=== PATIENT | female | born 1970 | race Caucasian/White ===

== ENCOUNTER 2018-02-26 23:35 | Inpatient (IN) | payer OTHER ==
[~2018-02-26] VITALS: Ht 165.1 cm; Wt 111.3 kg
[~2018-02-26 23:35] MED LIST: ATOR40TA28 PO; BUME1TAB17 PO; CINA30 PO; GABA-529 PO; INSLAN SQ; INSU100C3 SQ; LEVO25TA9 PO; LEVO500 PO; METO50 PO; NYST50002 PO; SEVEC800 PO; SUCR500T PO; VANC1PLA9 IV
[2018-02-27] MEDS ORDERED: BUME1TAB17 PO (00:02)
[2018-02-27] MEDS ORDERED: SEVEC800 PO (00:02)
[2018-02-27] MEDS ORDERED: INSNOV SQ ×2 (00:02)
[2018-02-27 00:34] LABS: BASOPHILS % (AUTO) 0.7 % (0.0-2.0); EOSINOPHILS % (AUTO) 6.4 % (1.0-6.0); HEMATOCRIT 33.9 % (36-46); HEMOGLOBIN 11.4 g/dL (12.0-16.0); LYMPHOCYTES # (AUTO) 1.2 K/uL (1.0-4.8); LYMPHOCYTES % (AUTO) 14.1 % (22.0-44.0); MEAN CORPUSCULAR HEMOGLOBIN 32.7 pg (26.0-34.0); MEAN CORPUSCULAR HGB CONC 33.7 G/dL (31.0-37.0); MEAN CORPUSCULAR VOLUME 97 fL (80-100); MONOCYTES # (AUTO) 0.7 K/uL (0.1-1.0); MONOCYTES % (AUTO) 8.2 % (2.0-9.0); NEUTROPHILS # (AUTO) 5.9 K/uL (1.8-7.7); NEUTROPHILS % (AUTO) 70.6 % (40.0-70.0); PLATELET COUNT (AUTO) 382 K/uL (150-450); RED BLOOD CELL COUNT(AUTO) 3.49 MIL/uL (4.00-5.20); RED CELL DISTRIBUTION WIDTH 13.5 % (11.5-14.5)
[2018-02-27 00:55] LABS: ALBUMIN 2.7 g/dL (3.4-5.0); BILIRUBIN,TOTAL 0.3 mg/dL (0.1-1.0); CALCIUM, TOTAL 8.6 mg/dL (8.8-10.5); CREATININE 7.19 mg/dL (0.60-1.30); POTASSIUM 4.4 mmol/L (3.5-5.1); TOTAL PROTEIN, SERUM 6.2 g/dL (6.4-8.2)
[2018-02-27] MEDS ORDERED: DEXTROSE 50%-WATER 25 GM/50 ML SYRINGE IVP ONE ×2 (00:56→01:00)
[2018-02-27] MEDS ORDERED: 0.9% SODIUM CHLORIDE 10 ML SYRINGE IVP PRN (01:45)
[2018-02-27] MEDS ORDERED: DEXTROSE 10%-WATER 1,000 ML IV ONE (01:45)
[2018-02-27] MEDS ORDERED: ONDANSETRON HCL 4 MG/2 ML VIAL IVP PRN ×2 (01:45→09:45)
[2018-02-27] MEDS ORDERED: ACETAMINOPHEN 325 MG TABLET PO PRN (01:45)
[2018-02-27 02:27] LABS: GLUCOSE,POINT OF CARE 97 MG/DL (70-110)
[2018-02-27 02:27] LABS: GLUCOSE,POINT OF CARE 145 MG/DL (70-110)
[2018-02-27 02:27] LABS: GLUCOSE,POINT OF CARE 108 MG/DL (70-110)
[2018-02-27 03:03] VITALS: BP 154/61
[2018-02-27 05:00] VITALS: BP 149/68
[2018-02-27 07:13] VITALS: BP 160/68
[2018-02-27] MEDS ORDERED: INSLAN SQ (07:48)
[2018-02-27] MEDS ORDERED: DEXTROSE 50%-WATER 25 GM/50 ML SYRINGE IVP PRN (08:00)
[2018-02-27] MEDS: BUMETANIDE 1 MG TABLET PO SCH ×2 (09:00→21:02)
[2018-02-27] MEDS: METOPROLOL TARTRATE 50 MG TABLET PO SCH ×2 (09:18→21:00)
[2018-02-27] MEDS: SEVELAMER CARBONATE 800 MG TABLET PO SCH ×3 (09:18→17:58)
[2018-02-27] MEDS: INSULIN LISPRO 100 UNITS/ML SQ PRN ×3 (09:23→21:10)
[2018-02-27] MEDS ORDERED: ZOLPIDEM TARTRATE 5 MG TABLET PO PRN (09:45)
[2018-02-27] MEDS: PANTOPRAZOLE SODIUM 40 MG/VIAL IVP SCH ×2 (09:45→10:18)
[2018-02-27] MEDS: DOCUSATE SODIUM 100 MG CAPSULE PO SCH ×2 (10:18→21:00)
[2018-02-27 11:41] VITALS: BP 142/71
[2018-02-27] MEDS ORDERED: HYDROmorphone 2 MG/ML SYRINGE IVP PRN (13:30)
[2018-02-27 13:38] LABS: GLUCOMETER DEV NAME(LOC) 5N 2S; GLUCOSE,POINT OF CARE 162 MG/DL (70-110)
[2018-02-27 15:30] VITALS: BP 156/76
[2018-02-27] MEDS: VITAMIN B COMP/VIT C/FOLIC ACID CAPSULE PO SCH (16:30)
[2018-02-27 19:53] VITALS: BP 157/75
[2018-02-27 20:02] LABS: GLUCOMETER DEV NAME(LOC) 5N 1P; GLUCOSE,POINT OF CARE 195 MG/DL (70-110)
[2018-02-27 20:02] LABS: GLUCOMETER DEV NAME(LOC) 5N 1P; GLUCOSE,POINT OF CARE 335 MG/DL (70-110)
[2018-02-27 20:02] LABS: GLUCOMETER DEV NAME(LOC) 5N 1P; GLUCOSE,POINT OF CARE 283 MG/DL (70-110)
[2018-02-27 20:03] LABS: GLUCOMETER DEV NAME(LOC) 5N 1P; GLUCOSE,POINT OF CARE 119 MG/DL (70-110)
[2018-02-27] MEDS: ATORVASTATIN CALCIUM 40 MG TABLET PO SCH (20:59)
[2018-02-27] MEDS: HYDROmorphone 2 MG/ML SYRINGE IVP PRN (21:04)
[2018-02-27] MEDS: GABAPENTIN 100 MG CAPSULE PO SCH (21:09)
[2018-02-27 22:27] LABS: GLUCOMETER DEV NAME(LOC) 5S 1M; GLUCOSE,POINT OF CARE 298 MG/DL (70-110)
[2018-02-28] VITALS (8 sets, daily range): BP systolic 129–181; BP diastolic 65–90
[2018-02-28] MEDS: HYDROmorphone 2 MG/ML SYRINGE IVP PRN ×4 (02:41→22:48)
[2018-02-28] MEDS: LEVOTHYROXINE SODIUM 50 MCG TABLET PO SCH (06:01)
[2018-02-28] MEDS: INSULIN LISPRO 100 UNITS/ML SQ PRN ×4 (06:03→20:45)
[2018-02-28 06:32] LABS: BASOPHILS % (AUTO) 0.6 % (0.0-2.0); HEMATOCRIT 32.1 % (36-46); HEMOGLOBIN 11.4 g/dL (12.0-16.0); LYMPHOCYTES # (AUTO) 1.8 K/uL (1.0-4.8); LYMPHOCYTES % (AUTO) 24.6 % (22.0-44.0); MEAN CORPUSCULAR HEMOGLOBIN 34.2 pg (26.0-34.0); MEAN CORPUSCULAR HGB CONC 35.3 G/dL (31.0-37.0); MEAN CORPUSCULAR VOLUME 97 fL (80-100); MONOCYTES # (AUTO) 0.7 K/uL (0.1-1.0); MONOCYTES % (AUTO) 9.9 % (2.0-9.0); NEUTROPHILS # (AUTO) 3.8 K/uL (1.8-7.7); NEUTROPHILS % (AUTO) 50.9 % (40.0-70.0); PLATELET COUNT (AUTO) 357 K/uL (150-450); RED BLOOD CELL COUNT(AUTO) 3.32 MIL/uL (4.00-5.20); RED CELL DISTRIBUTION WIDTH 13.3 % (11.5-14.5)
[2018-02-28 06:54] LABS: CALCIUM, TOTAL 8.4 mg/dL (8.8-10.5); CREATININE 6.71 mg/dL (0.60-1.30); POTASSIUM 4.9 mmol/L (3.5-5.1)
[2018-02-28 07:49] LABS: GLUCOMETER DEV NAME(LOC) 5N 2S; GLUCOSE,POINT OF CARE 269 MG/DL (70-110)
[2018-02-28] MEDS: VITAMIN B COMP/VIT C/FOLIC ACID CAPSULE PO SCH (08:26)
[2018-02-28] MEDS: SEVELAMER CARBONATE 800 MG TABLET PO SCH ×3 (08:26→17:59)
[2018-02-28] MEDS: METOPROLOL TARTRATE 50 MG TABLET PO SCH ×2 (08:26→20:40)
[2018-02-28] MEDS: PANTOPRAZOLE SODIUM 40 MG/VIAL IVP SCH (08:27)
[2018-02-28] MEDS: DOCUSATE SODIUM 100 MG CAPSULE PO SCH ×2 (08:27→20:40)
[2018-02-28] MEDS: BUMETANIDE 1 MG TABLET PO SCH ×2 (08:27→20:40)
[2018-02-28 15:17] LABS: GLUCOMETER DEV NAME(LOC) 5N 2S; GLUCOSE,POINT OF CARE 240 MG/DL (70-110)
[2018-02-28 19:57] LABS: GLUCOMETER DEV NAME(LOC) 5S 1M; GLUCOSE,POINT OF CARE 249 MG/DL (70-110)
[2018-02-28] MEDS: GABAPENTIN 100 MG CAPSULE PO SCH (20:40)
[2018-02-28] MEDS: ATORVASTATIN CALCIUM 40 MG TABLET PO SCH (20:40)
[2018-02-28] MEDS: INSULIN GLARGINE,HUM.REC.ANLOG 100 UNITS/ML SQ SCH (20:44)
[2018-03-01 04:29] VITALS: BP 158/83
[2018-03-01] MEDS: HYDROmorphone 2 MG/ML SYRINGE IVP PRN ×2 (04:55→10:53)
[2018-03-01] MEDS: LEVOTHYROXINE SODIUM 50 MCG TABLET PO SCH (06:01)
[2018-03-01] MEDS: INSULIN LISPRO 100 UNITS/ML SQ PRN ×3 (06:03→17:20)
[2018-03-01] MEDS ORDERED: INSULIN LISPRO 100 UNITS/ML SQ ONE (06:45)
[2018-03-01 06:48] LABS: GLUCOMETER DEV NAME(LOC) 5S 1M; GLUCOSE,POINT OF CARE 436 MG/DL (70-110)
[2018-03-01 06:48] LABS: GLUCOMETER DEV NAME(LOC) 5S 1M; GLUCOSE,POINT OF CARE 262 MG/DL (70-110)
[2018-03-01 07:23] VITALS: BP 144/70
[2018-03-01] MEDS: SEVELAMER CARBONATE 800 MG TABLET PO SCH ×3 (08:16→17:41)
[2018-03-01] MEDS: METOPROLOL TARTRATE 50 MG TABLET PO SCH (08:17)
[2018-03-01] MEDS: DOCUSATE SODIUM 100 MG CAPSULE PO SCH (08:17)
[2018-03-01] MEDS: VITAMIN B COMP/VIT C/FOLIC ACID CAPSULE PO SCH (08:18)
[2018-03-01] MEDS: BUMETANIDE 1 MG TABLET PO SCH (08:19)
[2018-03-01] MEDS: PANTOPRAZOLE SODIUM 40 MG/VIAL IVP SCH (08:19)
[2018-03-01] MEDS: INSULIN GLARGINE,HUM.REC.ANLOG 100 UNITS/ML SQ SCH (08:27)
[2018-03-01 11:17] VITALS: BP 152/72
[2018-03-01] MEDS ORDERED: LEVO50 PO (12:11)
[2018-03-01] MEDS ORDERED: FOLI1CAP2 PO (12:15)
[2018-03-01] MEDS ORDERED: INSLAN SQ (12:18)
[2018-03-01 15:10] VITALS: BP 159/77
[2018-03-01 20:27] LABS: GLUCOMETER DEV NAME(LOC) 5S 1M; GLUCOSE,POINT OF CARE 365 MG/DL (70-110)
[2018-03-01 20:27] LABS: GLUCOMETER DEV NAME(LOC) 5S 1M; GLUCOSE,POINT OF CARE 371 MG/DL (70-110)
[2018-03-01 20:27] LABS: GLUCOMETER DEV NAME(LOC) 5S 1M; GLUCOSE,POINT OF CARE 232 MG/DL (70-110)
[2018-03-01] MEDS ORDERED: INSULIN GLARGINE,HUM.REC.ANLOG 100 UNITS/ML SQ SCH (21:00)
[2018-03-02] MEDS ORDERED: INSULIN GLARGINE,HUM.REC.ANLOG 100 UNITS/ML SQ SCH (08:00)
== END 2018-03-01 18:15 | disposition home or self-care (01) | DRG 638 ==
LOC: EMS 23:36 → 5S 02-27 02:20
PROVIDERS: ADMIT Internal Medicine; ATTEND Internal Medicine
PROC: 5A1D70Z Performance of Urinary Filtration, Intermittent, Less than 6 Hours Per Day (ICD-10-PCS; principal; 2018-02-27)
PROC: 5A1D70Z Performance of Urinary Filtration, Intermittent, Less than 6 Hours Per Day (ICD-10-PCS; 2018-02-28)
DX: E11.649 Type 2 diabetes mellitus with hypoglycemia without coma (principal); I12.0 Hypertensive chronic kidney disease with stage 5 chronic kidney disease or end stage renal disease; E11.22 Type 2 diabetes mellitus with diabetic chronic kidney disease; E11.51 Type 2 diabetes mellitus with diabetic peripheral angiopathy without gangrene; Z68.41 Body mass index [BMI] 40.0-44.9, adult; H26.9 Unspecified cataract; E03.9 Hypothyroidism, unspecified; E78.5 Hyperlipidemia, unspecified; N18.6 End stage renal disease; Z99.2 Dependence on renal dialysis; Z79.4 Long term (current) use of insulin; Z79.899 Other long term (current) drug therapy; Z82.49 Family history of ischemic heart disease and other diseases of the circulatory system; Z83.3 Family history of diabetes mellitus; Z90.49 Acquired absence of other specified parts of digestive tract; Z85.9 Personal history of malignant neoplasm, unspecified; E66.9 Obesity, unspecified
CPT/HCPCS: 82962; 83735; 87081; 96374; 97162; 99285; C9113; J1170; J1815

== ENCOUNTER 2023-03-29 14:26 | Inpatient (IN) | payer MEDICARE, OTHER ==
[~2023-03-29] VITALS: Ht 165.1 cm; Wt 59.6 kg
[~2023-03-29 14:26] MED LIST changes: -BUME1TAB17 PO; +BUME1TAB34 PO; -CINA30 PO; +FOLI1CAP2 PO; +GABA-1216 PO; -GABA-529 PO; -INSU100C3 SQ; -LEVO25TA9 PO; +LEVO50 PO; -LEVO500 PO; -NYST50002 PO; +SEVE800T17 PO; -SEVEC800 PO; -SUCR500T PO; -VANC1PLA9 IV
[2023-03-29] MEDS ORDERED: LevETIRAcetam 1,000 MG in DEXTROSE 5%-WATER 100 ML IV ONE (15:00)
[2023-03-29 15:24] LABS: BASOPHILS % (AUTO) 0.4 % (0.0-2.0); HEMOGLOBIN 11.3 g/dL (12.0-16.0); LYMPHOCYTES # (AUTO) 1.2 K/uL (1.0-4.8); LYMPHOCYTES % (AUTO) 23.1 % (22.0-44.0); MEAN CORPUSCULAR HEMOGLOBIN 31.6 pg (26.0-34.0); MEAN CORPUSCULAR HGB CONC 33.1 G/dL (31.0-37.0); MEAN CORPUSCULAR VOLUME 95 fL (80-100); MONOCYTES # (AUTO) 0.8 K/uL (0.1-1.0); NEUTROPHILS # (AUTO) 2.9 K/uL (1.8-7.7); NEUTROPHILS % (AUTO) 56.5 % (40.0-70.0); PLATELET COUNT (AUTO) 214 K/uL (150-450); RED BLOOD CELL COUNT(AUTO) 3.57 MIL/uL (4.00-5.20); RED CELL DISTRIBUTION WIDTH 15.1 % (11.5-14.5)
[2023-03-29 15:37] LABS: ANION GAP 8 mmol/L (8-16); CALCIUM, TOTAL 8.7 mg/dL (8.8-10.5); CARBON DIOXIDE 27 mmol/L (22-29); CHLORIDE 98 mmol/L (98-107); CREATININE 4.25 mg/dL (0.60-1.30); GLOMERULAR FILTR. RATE CALC 11 mL/min (>60); GLUCOSE,RANDOM 173 mg/dL (70-110); POTASSIUM 3.9 mmol/L (3.5-5.1); SODIUM SERUM 133 mmol/L (136-145)
[2023-03-29 15:39] LABS: B-TYPE NATRIURETIC PEPTIDE 248 pg/mL (0-100)
[2023-03-29 15:40] LABS: INR 1.1 (0.9-1.1); PROTHROMBIN TIME 11.9 SEC (9.4-11.6)
[2023-03-29 15:44] LABS: AMMONIA 16 umol/L (11-32)
[2023-03-29 16:02] LABS: ALANINE AMINOTRANSFERASE 26 U/L (12-78); ALBUMIN 2.9 g/dL (3.4-5.0); ALKALINE PHOSPHATASE 232 U/L (46-116); ASPARTATE AMINOTRANSFERASE 36 U/L (15-37); BILIRUBIN,TOTAL 0.5 mg/dL (0.1-1.0); CREATINE KINASE, TOTAL ONLY 101 U/L (26-192); PHOSPHORUS 3.7 mg/dL (2.5-4.9); TOTAL PROTEIN, SERUM 6.6 g/dL (6.4-8.2)
[2023-03-29] MEDS ORDERED: DEXTROSE 50%-WATER 25 GM/50 ML SYRINGE IVP PRN (19:15)
[2023-03-29] MEDS ORDERED: ONDANSETRON HCL 4 MG/2 ML VIAL IVP PRN (19:15)
[2023-03-29] MEDS: ALBUTEROL SULFATE 2.5 MG/0.5 ML NEB SOLUTION NEB SCH ×2 (20:27→23:00)
[2023-03-29] MEDS: IPRATROPIUM BROMIDE 0.5 MG/2.5 ML NEB SOLUTION NEB SCH ×2 (20:27→23:00)
[2023-03-29] MEDS ORDERED: INSULIN GLARGINE,HUM.REC.ANLOG 100 UNITS/ML SQ SCH (21:00)
[2023-03-29] MEDS ORDERED: ATORVASTATIN CALCIUM 40 MG TABLET PO SCH (21:00)
[2023-03-29] MEDS ORDERED: METOPROLOL TARTRATE 50 MG TABLET PO SCH (21:00)
[2023-03-29 21:36] VITALS: BP 147/72
[2023-03-29] MEDS: INSULIN LISPRO 100 UNITS/ML SQ PRN (22:00)
[2023-03-29] MEDS: HEPARIN SODIUM,PORCINE 5,000 UNITS/ML VIAL SQ SCH (22:01)
[2023-03-29] MEDS: GABAPENTIN 100 MG CAPSULE PO SCH (22:02)
[2023-03-29] MEDS: ACETAMINOPHEN 325 MG TABLET PO PRN (22:02)
[2023-03-29] MEDS: BUMETANIDE 1 MG TABLET PO SCH (22:02)
[2023-03-29] MEDS ORDERED: ATORVASTATIN CALCIUM 40 MG TABLET PO ONE (23:15)
[2023-03-29] MEDS ORDERED: ASPIRIN 81 MG CHEWABLE TABLET PO ONE (23:15)
[2023-03-30 00:01] LABS: GLUCOMETER DEV NAME(LOC) 5S.2C; GLUCOSE,POINT OF CARE 186 MG/DL (70-110)
[2023-03-30 00:36] VITALS: BP 129/74
[2023-03-30] MEDS: IPRATROPIUM BROMIDE 0.5 MG/2.5 ML NEB SOLUTION NEB SCH ×6 (03:00→23:00)
[2023-03-30] MEDS: ALBUTEROL SULFATE 2.5 MG/0.5 ML NEB SOLUTION NEB SCH ×6 (03:00→23:00)
[2023-03-30] MEDS: ACETAMINOPHEN 325 MG TABLET PO PRN (03:08)
[2023-03-30 03:11] LABS: GLUCOMETER DEV NAME(LOC) 5S.1B; GLUCOSE,POINT OF CARE 167 MG/DL (70-110)
[2023-03-30 03:11] LABS: GLUCOMETER DEV NAME(LOC) 5S.1B; GLUCOSE,POINT OF CARE 33 MG/DL (70-110)
[2023-03-30 05:04] VITALS: BP 124/74
[2023-03-30] MEDS: LEVOTHYROXINE SODIUM 50 MCG TABLET PO SCH (06:12)
[2023-03-30] MEDS ORDERED: LEVOTHYROXINE SODIUM 50 MCG TABLET PO SCH (06:30)
[2023-03-30 07:20] VITALS: BP 96/50
[2023-03-30 08:31] LABS: GLUCOMETER DEV NAME(LOC) 5S.2C; GLUCOSE,POINT OF CARE 114 MG/DL (70-110)
[2023-03-30 08:31] LABS: GLUCOMETER DEV NAME(LOC) 5S.2C; GLUCOSE,POINT OF CARE 77 MG/DL (70-110)
[2023-03-30] MEDS: ASPIRIN 81 MG CHEWABLE TABLET PO SCH (08:55)
[2023-03-30] MEDS: SEVELAMER CARBONATE 800 MG TABLET PO SCH ×3 (08:55→18:24)
[2023-03-30] MEDS: ATORVASTATIN CALCIUM 40 MG TABLET PO SCH (08:56)
[2023-03-30] MEDS: HEPARIN SODIUM,PORCINE 5,000 UNITS/ML VIAL SQ SCH ×2 (08:56→20:05)
[2023-03-30] MEDS: BUMETANIDE 1 MG TABLET PO SCH (08:56)
[2023-03-30] MEDS: FOLIC ACID/VIT B COMPLEX AND C TABLET PO SCH (08:56)
[2023-03-30] MEDS: RANOLAZINE 500 MG ER TABLET PO SCH ×2 (08:57→20:05)
[2023-03-30] MEDS ORDERED: METOPROLOL SUCCINATE 25 MG ER TABLET PO SCH (09:00)
[2023-03-30] MEDS ORDERED: INSULIN GLARGINE,HUM.REC.ANLOG 100 UNITS/ML SQ SCH (09:00)
[2023-03-30 11:36] VITALS: BP 114/58
[2023-03-30 11:57] LABS: GLUCOMETER DEV NAME(LOC) 5S.1B; GLUCOSE,POINT OF CARE 176 MG/DL (70-110)
[2023-03-30] MEDS: INSULIN LISPRO 100 UNITS/ML SQ PRN ×3 (12:58→20:28)
[2023-03-30 13:01] LABS: GLUCOMETER DEV NAME(LOC) 5S.2C; GLUCOSE,POINT OF CARE 340 MG/DL (70-110)
[2023-03-30 15:26] VITALS: BP 102/61
[2023-03-30] MEDS ORDERED: KETOROLAC TROMETHAMINE 15 MG/ML VIAL IVP ONE (17:00)
[2023-03-30] MEDS ORDERED: LevETIRAcetam 250 MG in DEXTROSE 5%-WATER 100 ML IV SCH (18:00)
[2023-03-30 18:17] LABS: GLUCOMETER DEV NAME(LOC) 5S.1B; GLUCOSE,POINT OF CARE 181 MG/DL (70-110)
[2023-03-30] MEDS: LevETIRAcetam 500 MG TABLET PO SCH ×2 (18:24→20:05)
[2023-03-30 20:00] VITALS: BP 97/45
[2023-03-30] MEDS: GABAPENTIN 100 MG CAPSULE PO SCH (20:05)
[2023-03-30 22:31] LABS: GLUCOMETER DEV NAME(LOC) 5S.2C; GLUCOSE,POINT OF CARE 202 MG/DL (70-110)
[2023-03-30 22:35] LABS: APPEARANCE,URINE CLEAR (CLEAR); BILIRUBIN,URINE NEGATIVE (NEGATIVE); GLUCOSE, URINE (UA) 300-500 mg/dL (NEGATIVE); KETONES,URINE NEGATIVE (NEGATIVE); LEUKOCYTE ESTERASE ,URINE SMALL (NEGATIVE); NITRATE,URINE NEGATIVE (NEGATIVE); OCCULT BLOOD,URINE NEGATIVE (NEGATIVE); PROTEIN,URINE 100-200,SEE CONFIRM mg/dL (NEGATIVE); SPECIFIC GRAVITIY, URINE 1.008 (1.003-1.030); UROBILINOGEN,URINE <=1.0 mg/dL (<=1.0)
[2023-03-30 22:39] LABS: AMPHET/METH SCREEN,URINE NEGATIVE (NEGATIVE); BARBITURATE SCREEN, URINE NEGATIVE (NEGATIVE); BENZODIAZEPINES SCREEN,URINE NEGATIVE (NEGATIVE); CANNABINOID SCREEN,URINE NEGATIVE (NEGATIVE); COCAINE SCREEN,URINE NEGATIVE (NEGATIVE); METHADONE SCREEN, URINE NEGATIVE (NEGATIVE); OPIATE SCREEN,URINE NEGATIVE (NEGATIVE); PHENCYCLIDINE SCREEN,URINE NEGATIVE (NEGATIVE)
[2023-03-30 22:47] LABS: BACTERIA,URINE Rare /HPF (None Seen); RBC,URINE 0-2 /HPF (0-2); SQUAMOUS EPITHELIAL CELL,UR Few /LPF (None Seen); SULFOSALICYLIC ACID,URINE 2+ (Negative)
[2023-03-31] VITALS (15 sets, daily range): BP systolic 101–134; BP diastolic 53–71
[2023-03-31] MEDS: ALBUTEROL SULFATE 2.5 MG/0.5 ML NEB SOLUTION NEB SCH ×6 (03:00→23:20)
[2023-03-31] MEDS: IPRATROPIUM BROMIDE 0.5 MG/2.5 ML NEB SOLUTION NEB SCH ×6 (03:00→23:20)
[2023-03-31] MEDS: LEVOTHYROXINE SODIUM 50 MCG TABLET PO SCH (06:39)
[2023-03-31] MEDS: RANOLAZINE 500 MG ER TABLET PO SCH ×2 (09:06→20:22)
[2023-03-31] MEDS: ATORVASTATIN CALCIUM 40 MG TABLET PO SCH (09:07)
[2023-03-31] MEDS: SEVELAMER CARBONATE 800 MG TABLET PO SCH ×3 (09:07→18:27)
[2023-03-31] MEDS: LevETIRAcetam 500 MG TABLET PO SCH (09:08)
[2023-03-31] MEDS: ASPIRIN 81 MG CHEWABLE TABLET PO SCH (09:08)
[2023-03-31] MEDS: FOLIC ACID/VIT B COMPLEX AND C TABLET PO SCH (09:09)
[2023-03-31] MEDS: HEPARIN SODIUM,PORCINE 5,000 UNITS/ML VIAL SQ SCH ×2 (09:09→20:22)
[2023-03-31] MEDS ORDERED: SODIUM CHLORIDE 0.9% 1,000 ML ONE (09:55)
[2023-03-31] MEDS: INSULIN LISPRO 100 UNITS/ML SQ PRN ×2 (17:11→19:49)
[2023-03-31] MEDS ORDERED: INSU100I3 SQ (17:14)
[2023-03-31] MEDS ORDERED: NITR0.4T50 SL (17:14)
[2023-03-31] MEDS ORDERED: ISOS30TA68 PO (17:14)
[2023-03-31] MEDS ORDERED: OMEP20CA12 PO (17:14)
[2023-03-31] MEDS ORDERED: RANO500T6 PO (17:14)
[2023-03-31] MEDS ORDERED: ATOR-2 PO (17:14)
[2023-03-31] MEDS ORDERED: METO-416 PO (17:14)
[2023-03-31] MEDS ORDERED: FOLI0.8T2 PO (17:18)
[2023-03-31] MEDS: GABAPENTIN 100 MG CAPSULE PO SCH (20:23)
[2023-03-31 20:36] LABS: GLUCOMETER DEV NAME(LOC) 5N.1C; GLUCOSE,POINT OF CARE 367 MG/DL (70-110)
[2023-03-31 20:36] LABS: GLUCOMETER DEV NAME(LOC) 5N.1C; GLUCOSE,POINT OF CARE 318 MG/DL (70-110)
[2023-03-31 21:11] LABS: GLUCOMETER DEV NAME(LOC) 5S.1B; GLUCOSE,POINT OF CARE 219 MG/DL (70-110)
[2023-03-31] MEDS: MELATONIN 3 MG TABLET PO PRN (21:39)
[2023-04-01 00:04] VITALS: BP 123/63
[2023-04-01 01:21] LABS: GLUCOMETER DEV NAME(LOC) 5S.2C; GLUCOSE,POINT OF CARE 75 MG/DL (70-110)
[2023-04-01 01:21] LABS: GLUCOMETER DEV NAME(LOC) 5N.2C; GLUCOSE,POINT OF CARE 245 MG/DL (70-110)
[2023-04-01] MEDS: IPRATROPIUM BROMIDE 0.5 MG/2.5 ML NEB SOLUTION NEB SCH ×6 (03:00→23:00)
[2023-04-01] MEDS: ALBUTEROL SULFATE 2.5 MG/0.5 ML NEB SOLUTION NEB SCH ×6 (03:00→23:00)
[2023-04-01 05:29] VITALS: BP 116/60
[2023-04-01] MEDS: INSULIN LISPRO 100 UNITS/ML SQ PRN ×3 (06:06→20:11)
[2023-04-01] MEDS: LEVOTHYROXINE SODIUM 50 MCG TABLET PO SCH (06:06)
[2023-04-01 08:21] LABS: GLUCOMETER DEV NAME(LOC) 5N.2C; GLUCOSE,POINT OF CARE 363 MG/DL (70-110)
[2023-04-01 08:22] VITALS: BP 98/60
[2023-04-01] MEDS: ASPIRIN 81 MG CHEWABLE TABLET PO SCH (08:31)
[2023-04-01] MEDS: LevETIRAcetam 500 MG TABLET PO SCH (08:31)
[2023-04-01] MEDS: ATORVASTATIN CALCIUM 40 MG TABLET PO SCH (08:32)
[2023-04-01] MEDS: FOLIC ACID/VIT B COMPLEX AND C TABLET PO SCH (08:32)
[2023-04-01] MEDS: SEVELAMER CARBONATE 800 MG TABLET PO SCH ×3 (08:32→17:03)
[2023-04-01] MEDS: RANOLAZINE 500 MG ER TABLET PO SCH ×2 (08:33→20:09)
[2023-04-01] MEDS: HEPARIN SODIUM,PORCINE 5,000 UNITS/ML VIAL SQ SCH ×2 (08:33→20:10)
[2023-04-01] MEDS: INSULIN GLARGINE,HUM.REC.ANLOG 100 UNITS/ML SQ SCH ×2 (10:55→20:10)
[2023-04-01] MEDS ORDERED: INSULIN LISPRO 100 UNITS/ML SQ ONE (11:00)
[2023-04-01 11:03] LABS: BASOPHILS % (AUTO) 0.3 % (0.0-2.0); EOSINOPHILS % (AUTO) 5.6 % (1.0-6.0); HEMATOCRIT 37.3 % (36-46); HEMOGLOBIN 11.9 g/dL (12.0-16.0); LYMPHOCYTES # (AUTO) 1.1 K/uL (1.0-4.8); LYMPHOCYTES % (AUTO) 21.8 % (22.0-44.0); MEAN CORPUSCULAR HEMOGLOBIN 31.1 pg (26.0-34.0); MEAN CORPUSCULAR VOLUME 97 fL (80-100); MONOCYTES # (AUTO) 0.6 K/uL (0.1-1.0); MONOCYTES % (AUTO) 11.8 % (2.0-9.0); NEUTROPHILS # (AUTO) 2.9 K/uL (1.8-7.7); NEUTROPHILS % (AUTO) 60.5 % (40.0-70.0); PLATELET COUNT (AUTO) 213 K/uL (150-450); RED BLOOD CELL COUNT(AUTO) 3.84 MIL/uL (4.00-5.20); RED CELL DISTRIBUTION WIDTH 15.4 % (11.5-14.5)
[2023-04-01 11:29] LABS: CALCIUM, TOTAL 9.3 mg/dL (8.8-10.5); CREATININE 5.68 mg/dL (0.60-1.30); MAGNESIUM 2.4 mg/dL (1.80-2.40); PHOSPHORUS 3.8 mg/dL (2.5-4.9); POTASSIUM 5.1 mmol/L (3.5-5.1)
[2023-04-01 11:32] VITALS: BP 107/58
[2023-04-01 14:56] LABS: GLUCOMETER DEV NAME(LOC) 5S.2C; GLUCOSE,POINT OF CARE 446 MG/DL (70-110)
[2023-04-01 15:29] VITALS: BP 128/66
[2023-04-01] MEDS: ACETAMINOPHEN 325 MG TABLET PO PRN (17:32)
[2023-04-01] MEDS: MELATONIN 3 MG TABLET PO PRN (20:09)
[2023-04-01] MEDS: GABAPENTIN 100 MG CAPSULE PO SCH (20:09)
[2023-04-01 20:22] LABS: GLUCOMETER DEV NAME(LOC) 5N.2C; GLUCOSE,POINT OF CARE 212 MG/DL (70-110)
[2023-04-01 20:34] VITALS: BP 105/53
[2023-04-02 00:26] VITALS: BP 107/56
[2023-04-02] MEDS: INSULIN LISPRO 100 UNITS/ML SQ PRN ×3 (01:20→12:43)
[2023-04-02] MEDS: ALBUTEROL SULFATE 2.5 MG/0.5 ML NEB SOLUTION NEB SCH ×4 (03:00→15:00)
[2023-04-02] MEDS: IPRATROPIUM BROMIDE 0.5 MG/2.5 ML NEB SOLUTION NEB SCH ×4 (03:00→15:00)
[2023-04-02 04:36] LABS: GLUCOMETER DEV NAME(LOC) 5S.1B; GLUCOSE,POINT OF CARE 310 MG/DL (70-110)
[2023-04-02 04:36] LABS: GLUCOMETER DEV NAME(LOC) 5N.2C; GLUCOSE,POINT OF CARE 392 MG/DL (70-110)
[2023-04-02 05:19] VITALS: BP 125/68
[2023-04-02] MEDS: LEVOTHYROXINE SODIUM 50 MCG TABLET PO SCH (06:02)
[2023-04-02 07:55] VITALS: BP 111/58
[2023-04-02] MEDS: RANOLAZINE 500 MG ER TABLET PO SCH (08:06)
[2023-04-02] MEDS: FOLIC ACID/VIT B COMPLEX AND C TABLET PO SCH (08:06)
[2023-04-02] MEDS: SEVELAMER CARBONATE 800 MG TABLET PO SCH ×2 (08:06→12:42)
[2023-04-02] MEDS: LevETIRAcetam 500 MG TABLET PO SCH (08:06)
[2023-04-02] MEDS: HEPARIN SODIUM,PORCINE 5,000 UNITS/ML VIAL SQ SCH (08:07)
[2023-04-02] MEDS: ATORVASTATIN CALCIUM 40 MG TABLET PO SCH (08:07)
[2023-04-02] MEDS: ASPIRIN 81 MG CHEWABLE TABLET PO SCH (08:07)
[2023-04-02] MEDS: INSULIN GLARGINE,HUM.REC.ANLOG 100 UNITS/ML SQ SCH (08:10)
[2023-04-02] MEDS ORDERED: LEVE500T20 PO (08:36)
[2023-04-02] MEDS ORDERED: INSULIN GLARGINE,HUM.REC.ANLOG 100 UNITS/ML SQ ONE (10:15)
[2023-04-02 11:43] VITALS: BP 116/59
[2023-04-02] MEDS ORDERED: INSULIN GLARGINE,HUM.REC.ANLOG 100 UNITS/ML SQ SCH (21:00)
[2023-04-02 21:41] LABS: GLUCOMETER DEV NAME(LOC) 5N.1C; GLUCOSE,POINT OF CARE 403 MG/DL (70-110)
[2023-04-03 01:41] LABS: GLUCOMETER DEV NAME(LOC) 5S.2C; GLUCOSE,POINT OF CARE 80 MG/DL (70-110)
== END 2023-04-02 15:15 | disposition home or self-care (01) | DRG 100 ==
LOC: EMS 14:43 → 5S 20:27
PROVIDERS: ADMIT Internal Medicine; ATTEND Internal Medicine
PROC: 5A1D70Z Performance of Urinary Filtration, Intermittent, Less than 6 Hours Per Day (ICD-10-PCS; principal; 2023-04-01)
PROC: 4A00X4Z Measurement of Central Nervous Electrical Activity, External Approach (ICD-10-PCS; 2023-04-01)
DX: G40.909 Epilepsy, unspecified, not intractable, without status epilepticus (principal); N18.6 End stage renal disease; I12.0 Hypertensive chronic kidney disease with stage 5 chronic kidney disease or end stage renal disease; T82.838A Hemorrhage due to vascular prosthetic devices, implants and grafts, initial encounter; G93.40 Encephalopathy, unspecified; E44.0 Moderate protein-calorie malnutrition; E11.649 Type 2 diabetes mellitus with hypoglycemia without coma; E11.22 Type 2 diabetes mellitus with diabetic chronic kidney disease; Z99.2 Dependence on renal dialysis; D63.1 Anemia in chronic kidney disease; E03.9 Hypothyroidism, unspecified; E11.65 Type 2 diabetes mellitus with hyperglycemia; Y84.1 Kidney dialysis as the cause of abnormal reaction of the patient, or of later complication, without mention of misadventure at the time of the procedure; E78.5 Hyperlipidemia, unspecified; I25.10 Atherosclerotic heart disease of native coronary artery without angina pectoris; Z79.4 Long term (current) use of insulin; Z68.21 Body mass index [BMI] 21.0-21.9, adult; Z82.49 Family history of ischemic heart disease and other diseases of the circulatory system; Z83.3 Family history of diabetes mellitus; Z88.0 Allergy status to penicillin; Z88.2 Allergy status to sulfonamides; Y92.89 Other specified places as the place of occurrence of the external cause
CPT/HCPCS: 70450; 70551; 71045; 80048; 80053; 80307; 81001; 81002; 82140; 82550; 82962; 83735; 83880; 84100; 84443; 84484; 84703; 85025; 85610; 85730; 87040; 87081; 87340; 90935; 93005; 94640; 95816; 99285; G0480; J0712; J1644; J1815; J1885; J7030; J7060; 36415-L1; 36415-TC; J7613